=== PATIENT | female | born 1970 | race Caucasian/White ===

== ENCOUNTER 2022-12-25 10:03 | Day surgery (SDC) | payer OTHER ==
[~2022-12-25] VITALS: Ht 170.2 cm; Wt 80.9 kg
[~2022-12-25 10:03] MED LIST: ARIP10TA8 PO; ATOR20TA PO; CLOP-31 PO; DICY10CA13 PO; DULO60CA45 PO; HYDR-3421 PO; LACT10SO5 PO; LEVE1000 PO; MECL-160 PO; MIRA50TA PO; PANT40TA54 PO; PLEC3TAB2 PO; PROM12.513 PO; RALO60TA PO; RISP1TAB98 PO; SEMA1PEN3 SQ; SUCR1TAB2 PO; TIZA2CAP9 PO; TIZA4CAP8 PO; TOPI50TA24 PO; UBRO50TA PO; VALA10002 PO
[2022-12-25 11:30] VITALS: BP 112/63
[2022-12-25 11:47] LABS: BASOPHILS % (AUTO) 0.7 % (0.0-5.0); EOSINOPHILS % (AUTO) 1.3 % (0.0-8.0); HEMATOCRIT 41.9 % (36-48); MEAN CORPUSCULAR HEMOGLOBIN 29.9 pg (27.0-33.0); MEAN CORPUSCULAR HGB CONC 32.7 g/dL (32.0-36.0); MEAN CORPUSCULAR VOLUME 91.5 fL (79-99); NEUTROPHILS % (AUTO) 64.7 % (40.0-77.0); PLATELET COUNT (AUTO) 351 K/uL (130-400); RED BLOOD CELL COUNT(AUTO) 4.58 MIL/uL (4.00-5.50); WHITE BLOOD COUNT (AUTO) 6.7 K/uL (4.8-10.8)
[2022-12-25 12:31] LABS: INR 0.94 (0.85-1.15); PROTHROMBIN TIME 10.3 SEC (9.6-11.6)
[2022-12-25 12:42] LABS: POTASSIUM 3.5 mmol/L (3.5-5.1)
[2022-12-25] MEDS ORDERED: PROPOFOL 10 MG/ML 20ML VIAL IV ONE ×2 (13:15→13:31)
[2022-12-25] MEDS ORDERED: 0.9%NACL 1000ML 1,000 ML IV ONE (15:09)
== END 2022-12-25 14:45 | disposition home or self-care (01) ==
LOC: DAH 10:03 → ENDO 10:03
PROVIDERS: ATTEND Internal Medicine Gastroenterology
DX: K59.00 Constipation, unspecified (principal); Z20.822 Contact with and (suspected) exposure to COVID-19; R19.7 Diarrhea, unspecified; R10.13 Epigastric pain; K21.00 Gastro-esophageal reflux disease with esophagitis, without bleeding; K62.5 Hemorrhage of anus and rectum; K31.7 Polyp of stomach and duodenum; K64.0 First degree hemorrhoids; K62.1 Rectal polyp; K44.9 Diaphragmatic hernia without obstruction or gangrene; K92.0 Hematemesis; K29.00 Acute gastritis without bleeding; I10 Essential (primary) hypertension; F41.9 Anxiety disorder, unspecified; F32.A Depression, unspecified; M79.7 Fibromyalgia; E78.5 Hyperlipidemia, unspecified; I48.91 Unspecified atrial fibrillation; Z98.890 Other specified postprocedural states; Z90.710 Acquired absence of both cervix and uterus; Z79.899 Other long term (current) drug therapy; Z86.73 Personal history of transient ischemic attack (TIA), and cerebral infarction without residual deficits; Z90.89 Acquired absence of other organs; Z79.01 Long term (current) use of anticoagulants; Z79.02 Long term (current) use of antithrombotics/antiplatelets
CPT/HCPCS: 87635; 80048; 85025; 85610; 85730; 36415; 88305; 43239; 45380; C9803; J7030 ×2; J2704 ×2; A4620; A4215 ×2; A4223; A4657; A7002; A4335; A4222; A4221; A4663; A4216; A4606

== ENCOUNTER 2023-01-07 17:53 | Emergency (ER) | payer OTHER ==
[~2023-01-07] VITALS: Ht 170.2 cm; Wt 79.4 kg
[2023-01-07 18:06] VITALS: BP 135/60
[2023-01-07 19:24] LABS: BASOPHILS % (AUTO) 0.6 % (0.0-5.0); EOSINOPHILS % (AUTO) 1.5 % (0.0-8.0); HEMATOCRIT 39.8 % (36-48); LYMPHOCYTES % (AUTO) 29.8 % (21.0-51.0); MEAN CORPUSCULAR HEMOGLOBIN 30.1 pg (27.0-33.0); MEAN CORPUSCULAR HGB CONC 32.9 g/dL (32.0-36.0); MEAN CORPUSCULAR VOLUME 91.5 fL (79-99); MONOCYTES % (AUTO) 6.8 % (3.0-13.0); NEUTROPHILS % (AUTO) 60.8 % (40.0-77.0); PLATELET COUNT (AUTO) 342 K/uL (130-400); RED BLOOD CELL COUNT(AUTO) 4.35 MIL/uL (4.00-5.50); RED CELL DISTRIBUTION WIDTH 11.9 % (11.0-15.5); WHITE BLOOD COUNT (AUTO) 9.4 K/uL (4.8-10.8)
[2023-01-07 19:58] LABS: POTASSIUM 3.1 mmol/L (3.5-5.1)
[2023-01-07 20:02] LABS: ALBUMIN 4.2 g/dL (3.5-5.0); TOTAL PROTEIN, SERUM 8.2 g/dL (6.0-8.3)
[2023-01-07] MEDS ORDERED: IOHEXOL-350 50ML VIAL IV ONE (21:05)
[2023-01-07] MEDS: POTASSIUM BICARB/CIT AC 25 MEQ TABLET.EFF PO ONE (21:16)
[2023-01-07] MEDS: ONDANSETRON 4MG INJ IVP ONE (21:16)
[2023-01-07] MEDS: 0.9%NACL 1000ML 1,000 ML IV ONE (21:17)
[2023-01-07] MEDS ORDERED: LACT20PA6 PO (22:52)
[2023-01-07 23:19] LABS: APPEARANCE,URINE CLEAR (CLEAR); BILIRUBIN,URINE NEGATIVE (NEGATIVE); COLOR,URINE COLORLESS (YELLOW); GLUCOSE, URINE (UA) NEGATIVE (NEGATIVE); KETONES,URINE NEGATIVE (NEGATIVE); LEUKOCYTE ESTERASE ,URINE NEGATIVE Leu/uL (NEGATIVE); NITRATE,URINE NEGATIVE (NEGATIVE); OCCULT BLOOD,URINE NEGATIVE (NEGATIVE); PROTEIN,URINE NEGATIVE (NEGATIVE); UROBILINOGEN,URINE 0.2 mg/dL (0.2-1.0)
== END 2023-01-07 23:36 | disposition home or self-care (01) ==
LOC: EDH 17:53
DX: K59.00 Constipation, unspecified (principal); R11.2 Nausea with vomiting, unspecified; R19.7 Diarrhea, unspecified; K21.9 Gastro-esophageal reflux disease without esophagitis; Z90.710 Acquired absence of both cervix and uterus; Z98.890 Other specified postprocedural states
CPT/HCPCS: 99284; 74177; 96374; 96361; 80053; 83690; 85025; 81003; 36415; J7030; J2405; Q9967

== ENCOUNTER 2023-01-16 10:50 | Day surgery (SDC) | payer OTHER ==
[~2023-01-16] VITALS: Ht 170.2 cm; Wt 79.4 kg
[~2023-01-16 10:50] MED LIST changes: +LACT20PA6 PO
[2023-01-16 12:07] VITALS: BP 114/80
[2023-01-16 12:12] LABS: BASOPHILS % (AUTO) 0.5 % (0.0-5.0); HEMATOCRIT 31.3 % (36-48); LYMPHOCYTES % (AUTO) 33.2 % (21.0-51.0); MEAN CORPUSCULAR HEMOGLOBIN 29.7 pg (27.0-33.0); MEAN CORPUSCULAR HGB CONC 32.6 g/dL (32.0-36.0); NEUTROPHILS % (AUTO) 55.9 % (40.0-77.0); PLATELET COUNT (AUTO) 242 K/uL (130-400); RED BLOOD CELL COUNT(AUTO) 3.44 MIL/uL (4.00-5.50); RED CELL DISTRIBUTION WIDTH 12.3 % (11.0-15.5); WHITE BLOOD COUNT (AUTO) 5.5 K/uL (4.8-10.8)
[2023-01-16 12:22] LABS: CREATININE 0.7 mg/dL (0.5-1.5); INR 1.02 (0.85-1.15); PROTHROMBIN TIME 11.1 SEC (9.6-11.6)
[2023-01-16 12:23] LABS: PARTIAL THROMBOPLASTIN TIME 26.9 SEC (26.3-35.5)
[2023-01-16 12:25] LABS: POTASSIUM 2.9 mmol/L (3.5-5.1)
[2023-01-16] MEDS ORDERED: POTASSIUM CHLORIDE 20MEQ/100ML 100 ML IV ONE (12:39)
[2023-01-16] MEDS ORDERED: 0.9%NACL 1000ML 1,000 ML IV ONE (12:39)
[2023-01-16] MEDS ORDERED: PROPOFOL 10 MG/ML 20ML VIAL IV ONE (13:48)
[2023-01-16] MEDS ORDERED: LIDOCAINE PF 100MG/5ML (2%) SYRINGE 5ML ONE (13:50)
[2023-01-16 14:08] VITALS: BP_SYST 117; BP_SYST 133; BP_DIAS 77
[2023-01-16 14:13] VITALS: BP_SYST 123; BP_SYST 126; BP_DIAS 70; BP_DIAS 74
[2023-01-16 14:18] VITALS: BP 120/90
[2023-01-16 14:23] VITALS: BP_SYST 118; BP_SYST 127; BP_DIAS 72; BP_DIAS 86
== END 2023-01-16 15:41 | disposition home or self-care (01) ==
LOC: ENDO 10:50
PROVIDERS: ATTEND Internal Medicine Gastroenterology
DX: R10.13 Epigastric pain (principal); I10 Essential (primary) hypertension; E78.5 Hyperlipidemia, unspecified; F32.A Depression, unspecified; F41.9 Anxiety disorder, unspecified; M79.7 Fibromyalgia; M47.816 Spondylosis without myelopathy or radiculopathy, lumbar region; I48.19 Other persistent atrial fibrillation; Z86.73 Personal history of transient ischemic attack (TIA), and cerebral infarction without residual deficits; Z98.890 Other specified postprocedural states; Z90.710 Acquired absence of both cervix and uterus; Z88.1 Allergy status to other antibiotic agents; Z88.5 Allergy status to narcotic agent; Z88.8 Allergy status to other drugs, medicaments and biological substances; Z79.01 Long term (current) use of anticoagulants; Z20.822 Contact with and (suspected) exposure to COVID-19; Z79.899 Other long term (current) drug therapy
CPT/HCPCS: 44360; 80048; 85025; 85610; 85730; 87426; 36415; J7030 ×2; J2001; J2704; J3480; A4620; A4215 ×2; A4223; A4657; A7002; A4222; A4221; A4663; A4216; A4606

== ENCOUNTER → 2024-07-01 | Outpatient (CLI) | payer OTHER ==
[~2024-07-01] MED LIST changes: -DICY10CA13 PO; +DICY10CA2 PO; -MECL-160 PO; +MECL-302 PO; +RALO60 PO; -RALO60TA PO; +RISP-30 PO; -RISP1TAB98 PO; +TOPI-97 PO; -TOPI50TA24 PO
== END | disposition home or self-care (01) ==
LOC: RAH 14:36
PROVIDERS: ATTEND Internal Medicine Gastroenterology
DX: K76.0 Fatty (change of) liver, not elsewhere classified (principal)
CPT/HCPCS: 76700